=== PATIENT | female | born 1945 | race Caucasian/White ===

== ENCOUNTER → 2020-12-18 | Outpatient (CLI) | payer OTHER ==
[~2020-12-18] MED LIST: MIRALAX 119 GR119 GM PO; STOOL SOFTENER240 MG PO
== END ==
LOC: KOH-I 16:27
DX: S82.101A Unspecified fracture of upper end of right tibia, initial encounter for closed fracture (principal); S82.141A Displaced bicondylar fracture of right tibia, initial encounter for closed fracture
CPT/HCPCS: 73700

== ENCOUNTER 2021-02-01 16:19 | Emergency (ER) | payer OTHER ==
[2021-02-01] MEDS ORDERED: STOOL SOFTENER240 MG PO (19:08)
[2021-02-01] MEDS ORDERED: MIRALAX 119 GR119 GM PO (19:08)
== END 2021-02-01 20:03 | disposition home or self-care (01) ==
LOC: ER1 16:19
DX: K59.00 Constipation, unspecified (principal); I10 Essential (primary) hypertension; E11.9 Type 2 diabetes mellitus without complications
CPT/HCPCS: 74018; 99283